=== PATIENT | female | born 1995 | race Caucasian/White ===

== ENCOUNTER 2019-06-16 09:32 | Emergency (ER) | payer OTHER ==
--- NOTE | 2019-06-16 10:21 | UC ---
Throat Pain/Nasal Fredy HPI - HPI Summary HPI Summary: 23-year-old female with cold symptoms over the past week and now having sinus pressure and postnasal drainage. She denies any fever or chills. She did not get a flu shot. - History of Current Complaint Chief Complaint: UCGeneralIllness Stated Complaint: SINUS ISSUE Time Seen by Provider: 06/16/19 10:13 Hx Obtained From: Patient Hx Last Menstrual Period: 05/28/19 ?: No Onset/Duration: Gradual Onset Severity: Moderate Pain Intensity: 5 Cough: Nonproductive Associated Signs & Symptoms: Positive: Sinus Discomfort, Nasal Discharge - Allergies/Home Medications Allergies/Adverse Reactions: Allergies Allergy/AdvReac Type Severity Reaction Status Date / Time amoxicillin Allergy Intermediate Hives Verified 06/16/19 09:59 Home Medications: Home Medications Levonorgestrel-Ethin Estradiol [Vienva-28 Tablet] 1 each PO DAILY WITH MEAL [History Confirmed 06/16/19] PMH/Surg Hx/FS Hx/Imm Hx Previously Healthy: Yes - Surgical History Surgical History: None - Family History Known Family History: Positive: Non-Contributory - Social History Lives: With Family Alcohol Use: Daily Substance Use Type: None Smoking Status (MU): Former Smoker Review of Systems All Other Systems Reviewed And Are Negative: Yes ENT: Positive: Ear Ache, Nasal Discharge, Sinus Congestion, Sinus Pain/ Tenderness Respiratory: Positive: Cough - Nonproductive loose cough. Is Patient Immunocompromised?: No Physical Exam Triage Information Reviewed: Yes Appearance: Well-Appearing, No Pain Distress, Well-Nourished Vital Signs: Initial Vital Signs Temp 98.3 F 06/16/19 09:54 Pulse 104 06/16/19 09:54 Resp 18 06/16/19 09:54 BP 106/77 06/16/19 09:54 Pulse Ox 95 06/16/19 09:54 Vital Signs Reviewed: Yes Eyes: Positive: Conjunctiva Clear ENT: Positive: Hearing grossly normal, Pharynx normal - Yellow purulent postnasal drainage., Nasal congestion - Yellow purulent nasal coryza bilaterally., Nasal drainage, TMs normal, Sinus tenderness - Tenderness over the maxillary sinuses bilaterally., Uvula midline Neck exam: Normal Neck: Positive: Supple, Nontender, No Lymphadenopathy Respiratory: Positive: No respiratory distress, No accessory muscle use, Rhonchi - Very mild expiratory rhonchi throughout but with good air movement. No consolidation auscultated. Cardiovascular: Positive: RRR, No Murmur, Pulses Normal, Brisk Capillary Refill Musculoskeletal Exam: Normal Neurological Exam: Normal Psychological Exam: Normal Skin Exam: Normal Throat Pain/Nasal Course/Dx - Course Course Of Treatment: Patient is comfortable here. I'm going to treat her with doxycycline 100 mg by mouth twice a day 10 days. She is visiting from out of town over the next week and therefore she can follow-up [facility] if she has no improvement in symptoms over the next 4-5 days. - Differential Dx/Diagnosis Provider Diagnosis: Sinusitis Discharge ED - Sign-Out/Discharge Documenting (check all that apply): Patient Departure All imaging exams completed and their final reports reviewed: No Studies - Discharge Plan Condition: Good Disposition: HOME Prescriptions: DOXYcycline CAP(*) [DOXYcycline 100MG CAP(*)] 100 mg PO BID 10 Days #20 cap Patient Education Materials: Sinusitis (ED) Referrals: No Primary Care Phys,NOPCP [Primary Care Provider] - [facility] [Outside] Additional Instructions: Increase fluids, OTC cold meds as directed, no dairy products, antacids, multivitamins or supplements 2 hours before you take the Doxycycline and 2 hours after you take the Doxycycline however be sure and take it with food. Follow up at the [facility] if no improvement in 4-5 days. - Billing Disposition and Condition Condition: GOOD Disposition: Home
== END 2019-06-16 10:27 | disposition home or self-care (01) ==
LOC: UCEAST 09:32
DX: J32.9 Chronic sinusitis, unspecified (principal); Z88.0 Allergy status to penicillin; Z87.891 Personal history of nicotine dependence
CPT/HCPCS: 99202; G0463